=== PATIENT | male | born 1990 | race American Indian/Alaskan Native ===

== ENCOUNTER 2019-07-14 11:03 | Emergency (ER) | payer SELFPAY ==
[2019-07-14 11:30] VITALS: BP 132/73
--- NOTE | 2019-07-14 11:34 | Event Note ---
ED Screening Note Date of service: 07/14/19 Time: 11:32 ED Screening Note: 28 y o male presents with mid abd pain x 2 days denies n/v/d This initial assessment/diagnostic orders/clinical plan/treatment(s) is/are subject to change based on patients health status, clinical progression and re-assessment by fellow clinical providers in the ED. Further treatment and workup at subsequent clinical providers discretion. Patient/guardian urged not to elope from the ED as their condition may be serious if not clinically assessed and managed. Initial orders include: ua
[2019-07-14] MEDS ORDERED: SODIUM CHLORIDE 0.9% 1000 ML 1,000 ML IV ONE (12:52)
[2019-07-14] MEDS ORDERED: KETOROLAC 30 MG/1 ML INJ IV ONE (12:52)
[2019-07-14 13:22] LABS: Basophils % (Auto) 0.4 % (0.0-1.8); Eosinophils % (Auto) 0.6 % (0.0-4.3); Hematocrit 39.2 % (35.5-45.6); Hemoglobin 13.4 gm/dl (11.8-15.2); Lymphocytes # (Auto) 1.2 K/mm3 (1.2-5.4); Mean Corpuscular HGB Conc 34 % (32-34); Mean Corpuscular Volume 92 fl (84-94); Monocytes # (Auto) 0.2 K/mm3 (0.0-0.8); Monocytes % (Auto) 6.8 % (0.0-7.3); Platelet Count 157 K/mm3 (140-440); Red Blood Count 4.29 M/mm3 (3.65-5.03); Red Cell Distribution Width 14.1 % (13.2-15.2)
[2019-07-14 13:31] LABS: Alanine Aminotransferase 9 units/L (7-56); Albumin 4.4 g/dL (3.9-5); BUN/Creatinine Ratio 10; Blood Urea Nitrogen 7 mg/dL (9-20); Calcium 8.8 mg/dL (8.4-10.2); Hemolysis Index 4
--- NOTE | 2019-07-14 16:16 | Cat Scan Report ---
CT ABDOMEN AND PELVIS WITH CONTRAST HISTORY: right sided abd pain COMPARISON: None. TECHNIQUE: Axial CT images were obtained through the abdomen and pelvis after 100 cc of Omnipaque 300 intravenously. Sagittal and coronal reformatted images. All CT scans at this location are performed using CT dose reduction for ALARA by means of automated exposure control. FINDINGS: CT ABDOMEN: Lung Bases: Clear. Liver: No significant abnormality. Biliary: No significant abnormality. Spleen: No significant abnormality. Unenlarged. Pancreas: No significant abnormality. Adrenals: No significant abnormality. Kidneys: No significant abnormality. Lymphatics: No lymphadenopathy. Vasculature: No significant abnormality. Bowel/Peritoneum: No significant abnormality. No free air. No free fluid. Normal appendix. CT PELVIS: : No significant abnormality. Osseous Structures: No significant abnormality. Additional Findings: None IMPRESSION: No significant abnormality. Signer Name: Rolando Horne Jr, MD Signed: 07/14/2019 4:12 PM Workstation Name: [id number]
[2019-07-14] MEDS ORDERED: DICYCLOMINE 20 MG/2 ML INJ IM ONE (16:53)
--- NOTE | 2019-07-14 17:08 | Emergency Department Report ---
ED N/V/D HPI - General Chief complaint: Abdominal Pain Stated complaint: ABD PAIN Time Seen by Provider: 07/14/19 11:27 Source: patient Mode of arrival: Ambulatory Limitations: No Limitations - History of Present Illness Initial comments: Patient is a 28-year-old male who is presenting with 5 days of low abdominal pain in the right lower quadrant as well as diarrhea. Diarrhea is watery and nonbloody. Patient denies any nausea vomiting fevers or chills. Patient denies cough cold or congestion at this time. - Related Data Previous Rx's Medication Instructions Recorded Last Taken Type Prednisone [predniSONE 10 mg 10 mg PO QDAY #1 tab.ds.pk 07/04/13 Unknown Rx (6-Day Pack, 21 Tabs)] Amoxicillin/K Clav Tab [Augmentin 1 tab PO Q12HR #20 tab 07/04/15 Unknown Rx 875 mg] Ibuprofen [Motrin] 600 mg PO Q8H PRN #40 tablet 07/04/15 Unknown Rx cephALEXin [Keflex] 500 mg PO Q6HR #40 capsule 07/04/15 Unknown Rx traMADol [Ultram] 50 mg PO Q6HR PRN #20 tablet 07/04/15 Unknown Rx Dicyclomine [Bentyl] 20 mg PO QID #10 tablet 07/14/19 Unknown Rx Diphenoxylate/Atropine [Lomotil] 1 tab PO Q4H PRN #10 tablet 07/14/19 Unknown Rx Allergies Allergy/AdvReac Type Severity Reaction Status Date / Time No Known Allergies Allergy Verified 07/04/15 04:40 ED Review of Systems ROS: Stated complaint: ABD PAIN Other details as noted in HPI Comment: All other systems reviewed and negative ED Past Medical Hx - Past Medical History Previous Medical History?: No - Surgical History Past Surgical History?: No - Social History Smoking Status: Current Every Day Smoker Substance Use Type: None - Medications Home Medications: Home Medications Medication Instructions Recorded Confirmed Last Taken Type Prednisone [predniSONE 10 mg 10 mg PO QDAY #1 tab.ds.pk 07/04/13 Unknown Rx (6-Day Pack, 21 Tabs)] Amoxicillin/K Clav Tab [Augmentin 1 tab PO Q12HR #20 tab 07/04/15 Unknown Rx 875 mg] Ibuprofen [Motrin] 600 mg PO Q8H PRN #40 tablet 07/04/15 Unknown Rx cephALEXin [Keflex] 500 mg PO Q6HR #40 capsule 07/04/15 Unknown Rx traMADol [Ultram] 50 mg PO Q6HR PRN #20 tablet 07/04/15 Unknown Rx Dicyclomine [Bentyl] 20 mg PO QID #10 tablet 07/14/19 Unknown Rx Diphenoxylate/Atropine [Lomotil] 1 tab PO Q4H PRN #10 tablet 07/14/19 Unknown Rx ED Physical Exam - General Limitations: No Limitations General appearance: alert, in no apparent distress - Head Head exam: Present: atraumatic, normocephalic - Eye Eye exam: Present: normal appearance, PERRL, EOMI - ENT ENT exam: Present: mucous membranes moist - Neck Neck exam: Present: normal inspection - Respiratory Respiratory exam: Present: normal lung sounds bilaterally. Absent: respiratory distress, wheezes, rales, rhonchi - Cardiovascular Cardiovascular Exam: Present: regular rate, normal rhythm, normal heart sounds. Absent: systolic murmur, diastolic murmur, rubs, gallop - GI/Abdominal GI/Abdominal exam: Present: soft, tenderness (RLQ pain), normal bowel sounds. Absent: distended, guarding, rebound - Rectal Rectal exam: Present: deferred - Extremities Exam Extremities exam: Present: normal inspection - Back Exam Back exam: Present: normal inspection - Neurological Exam Neurological exam: Present: alert, oriented X3 - Psychiatric Psychiatric exam: Present: normal affect, normal mood - Skin Skin exam: Present: warm, dry, intact, normal color. Absent: rash ED Course Vital Signs 07/14/19 11:27 Temperature 98.4 F Pulse Rate 71 Respiratory 18 Rate Blood Pressure 132/73 O2 Sat by Pulse 98 Oximetry ED Medical Decision Making - Lab Data Result diagrams: 07/14/19 12:55 07/14/19 12:55 - Radiology Data [facility] [address] [place] [address] Cat Scan Report Signed Patient: JC LOPEZ MR #: [id number] : 1990 Acct:[id number] Age/Sex: 28 / M ADM Date: 07/14/19 Loc: ED Attending Dr: Ordering Physician: NIMA ALBERTO MD Date of Service: 07/14/19 Procedure(s): CT abdomen pelvis w con Accession Number(s): [id number] cc: NIMA ALBERTO MD CT ABDOMEN AND PELVIS WITH CONTRAST HISTORY: right sided abd pain COMPARISON: None. TECHNIQUE: Axial CT images were obtained through the abdomen and pelvis after 100 cc of Omnipaque 300 intravenously. Sagittal and coronal reformatted images. All CT scans at this location are performed using CT dose reduction for ALARA by means of automated exposure control. FINDINGS: CT ABDOMEN: Lung Bases: Clear. Liver: No significant abnormality. Biliary: No significant abnormality. Spleen: No significant abnormality. Unenlarged. Pancreas: No significant abnormality. Adrenals: No significant abnormality. Kidneys: No significant abnormality. Lymphatics: No lymphadenopathy. Vasculature: No significant abnormality. Bowel/Peritoneum: No significant abnormality. No free air. No free fluid. Normal appendix. CT PELVIS: : No significant abnormality. Osseous Structures: No significant abnormality. Additional Findings: None IMPRESSION: No significant abnormality. Signer Name: Rolando Nelson Jr, MD Signed: 07/14/2019 4:12 PM Workstation Name: [id number] Transcribed By: TTR Dictated By: ROLANDO NELSON JR, MD Electronically Authenticated By: ROLANDO NELSON JR, MD Signed Date/Time: 07/14/19 1612 - Medical Decision Making Was hydrated and given meds for symptomatic relief. Patient's CT was negative for inflammatory changes. Patient was a simple likely viral enteritis and the patient be discharged home with medications for symptomatically relief. Critical care attestation.: If time is entered above; I have spent that time in minutes in the direct care of this critically ill patient, excluding procedure time. ED Disposition Clinical Impression: Viral enteritis Disposition: DC-01 TO HOME OR SELFCARE Is pt being admited?: No Does the pt Need Aspirin: No Condition: Stable Instructions: Acute Diarrhea (ED) Referrals: PRIMARY CARE, [Primary Care Provider] - 3-5 Days Forms: Work/School Release Form(ED) Time of Disposition: 17:07
== END 2019-07-14 17:24 | disposition home or self-care (01) ==
LOC: ED 11:03
DX: A08.4 Viral intestinal infection, unspecified (principal); F17.200 Nicotine dependence, unspecified, uncomplicated; Z79.899 Other long term (current) drug therapy
CPT/HCPCS: 36415; 74177; 80053; 85025; 96361; 96372; 96374; 99284; J0500; J1885; J7030; Q9967

== ENCOUNTER 2021-12-07 09:31 | Emergency (ER) | payer SELFPAY ==
[2021-12-07 10:07] VITALS: BP 100/79
--- NOTE | 2021-12-07 10:20 | Emergency Department Report ---
Upper Extremity - HPI Chief Complaint: Shoulder Injury Stated Complaint: LT SHOULDER INJURY Time Seen by Provider: 12/07/21 10:04 Upper Extremity: Left Shoulder Occurred When: >5 Days Mechanism: Other (Plan around) Severity: moderate Symptoms: Yes Pain with Movement, No Limited Range of Movement Other History: 31-year-old -Cypriot male with no past medical history presents to the emergency room complaining of left shoulder pain x1 week. Patient states that he was horsing around when he injured his left shoulder. Patient is taking nothing for his discomfort. States the pain is worse when he abduction. ED Review of Systems ROS: Stated complaint: LT SHOULDER INJURY Other details as noted in HPI Comment: All other systems reviewed and negative ED Past Medical Hx - Past Medical History Previous Medical History?: No - Surgical History Past Surgical History?: No - Social History Smoking Status: Current Every Day Smoker Substance Use Type: None - Medications Home Medications: Home Medications Medication Instructions Recorded Confirmed Last Taken Type Prednisone [predniSONE 10 mg 10 mg PO QDAY #1 tab.ds.pk 07/04/13 Unknown Rx (6-Day Pack, 21 Tabs)] Amoxicillin/K Clav Tab [Augmentin 1 tab PO Q12HR #20 tab 07/04/15 Unknown Rx 875 mg] Ibuprofen [Motrin] 600 mg PO Q8H PRN #40 tablet 07/04/15 Unknown Rx cephALEXin [Keflex] 500 mg PO Q6HR #40 capsule 07/04/15 Unknown Rx traMADoL [Ultram] 50 mg PO Q6HR PRN #20 tablet 07/04/15 Unknown Rx Dicyclomine [Bentyl] 20 mg PO QID #10 tablet 07/14/19 Unknown Rx Diphenoxylate/Atropine [Lomotil] 1 tab PO Q4H PRN #10 tablet 07/14/19 Unknown Rx Ibuprofen [Motrin 800 MG tab] 800 mg PO Q8HR PRN #30 tablet 12/07/21 Unknown Rx Upper Extremity Exam - Exam General: Vital signs noted. No distress. Alert and acting appropriately. Shoulder Exam: Yes Shoulder Tenderness, Yes AC Joint Tenderness (Pain with passive range of motion), No Clavicle Tenderness, No Shoulder Deformity Arm Exam: No Arm/Humerus Tenderness, No Arm Deformity Elbow: No Elbow Tenderness, No Normal Range of Motion in Elbow, No Elbow Deformity Forearm: No Forearm Tenderness, No Forearm Deformity, No Pain with Pronation, No Pain with Supination Wrist: Yes Normal ROM in Wrist, No Wrist Tenderness, No Wrist Deformity, No Snuffbox Tenderness, No Pain with Axial Thumb Compression Hand: Yes Normal ROM in Digit(s), No Hand Tenderness, No Hand Deformity, No D igit Tenderness, No Digit(s) Deformity, No Tendon Dysfunction CMS Exam: No Broken Skin, No Normal Distal Pulses, No Normal Capillary Refill, No Normal Distal Sensation ED Medical Decision Making - Radiology Data Radiology results: report reviewed [facility] [address] [place] [address] XRay Report Signed Patient: JC LOPEZ MR #: [id number] : 1990 Acct:[id number] Age/Sex: 31 / M ADM Date: 12/07/21 Loc: ED Attending Dr: Ordering Physician: MARGY DAO Date of Service: 12/07/21 Procedure(s): XR shoulder 2+V LT Accession Number(s): [id number] cc: MARGY DAO Fluoro Time In Minutes: LEFT SHOULDER 3 VIEWS INDICATION: Shoulder pain injury. COMPARISON: None. IMPRESSION: No acute osseous or soft tissue abnormality. No significant DJD. Signer Name: Rolando Horne Jr, MD Signed: 12/07/2021 10:54 AM Workstation Name: [id number] Transcribed By: TTR Dictated By: ROLANDO HORNE JR, MD Electronically Authenticated By: ROLANDO HORNE JR, MD Signed Date/Time: 12/07/21 105 DD/ 1054 TD/TT: - Medical Decision Making 31-year-old -[place]yp[place] male with no past medical history presents to the emergency room complaining of left shoulder pain x1 week. Patient states that he was horsing around when he injured his left shoulder. Patient is taking nothing for his discomfort. States the pain is worse when he abduction. X-ray left shoulder shows no acute osteoabnormality. Patient will be discharged home on ibuprofen 800 mg. Referral to orthopedist. Critical care attestation.: If time is entered above; I have spent that time in minutes in the direct care of this critically ill patient, excluding procedure time. ED Disposition Clinical Impression: Left anterior shoulder pain Disposition: 01 HOME / SELF CARE / HOMELESS Is pt being admited?: No Does the pt Need Aspirin: No Condition: Stable Instructions: Shoulder Pain, [id number], Joint Pain, [id number] Additional Instructions: X-ray of left shoulder shows no acute abnormalities. As I spoke to you need to follow-up with an orthopedist provider as they may able to do further imaging. Take your ibuprofen as needed for pain management. Prescriptions: Ibuprofen [Motrin 800 MG tab] 800 mg PO Q8HR PRN #30 tablet PRN Reason: Pain , Severe (7-10) Referrals: PRIMARY CAREMD [Primary Care Provider] - 3-5 Days BRENNA LICONA MD [Staff Physician] - 3-5 Days Forms: Work/School Release Form(ED) Time of Disposition: 11:15
--- NOTE | 2021-12-07 11:05 | XRay Report ---
LEFT SHOULDER 3 VIEWS INDICATION: Shoulder pain injury. COMPARISON: None. IMPRESSION: No acute osseous or soft tissue abnormality. No significant DJD. Signer Name: Rolando Horne Jr, MD Signed: 12/07/2021 10:54 AM Workstation Name: [id number]
== END 2021-12-07 11:52 | disposition home or self-care (01) ==
LOC: ED 09:31
DX: M25.512 Pain in left shoulder (principal); F17.200 Nicotine dependence, unspecified, uncomplicated; Z79.899 Other long term (current) drug therapy
CPT/HCPCS: 99283